=== PATIENT | female | born 1985 | race Caucasian/White ===

== ENCOUNTER 2016-12-04 05:03 | Emergency (ER) | payer SELFPAY ==
[~2016-12-04] VITALS: Ht 165.1 cm; Wt 90.7 kg
[2016-12-04 05:12] VITALS: BP 148/80
[2016-12-04 05:38] LABS: BILIRUBIN,URINE NEGATIVE (NEG); GLUCOSE,URINE NEGATIVE (NEG); NITRITE,URINE NEGATIVE (NEG); PH,URINE 5.5; PROTEIN,URINE NEGATIVE (NEG-TRACE); UROBILINOGEN,URINE 0.2 mg/dL (0.2 mg/dL)
[2016-12-04 05:46] LABS: BARBITURATES NEG (NEG); BENZODIAZEPINES NEG (NEG); CANNABINOIDS POS (NEG); COCAINE NEG (NEG); ETHANOL, URINE NEG (NEG); METHADONE NEG (NEG); OPIATES NEG (NEG); PHENCYCLIDINE POS (NEG)
--- NOTE | 2016-12-04 05:47 | PHYS DOC ---
Past Medical History Past Medical History: Asthma Past Surgical History: Alcohol Use: None Drug Use: Marijuana, Methamphetamine Adult General Chief Complaint Chief Complaint: HEADACHE HPI HPI This is a 31-year-old female who states she's had significant headache that is localized primarily to her frontal area for the last 5 days. She denies any nausea or vomiting. She denies any photophobia or phonophobia. She has tried taking Tylenol without relief. She states she usually does not have headaches. She does admit to being a previous IV methamphetamine user but states she has not used recently area she denies any fever or chills. She denies any neck pain or neck stiffness. Patient is fully alert and oriented and able to answer all my questions and in no acute distress. Review of Systems Review of Systems Constitutional: Denies fever or chills [] Eyes: Denies change in visual acuity, redness, or eye pain [] HENT: Denies nasal congestion or sore throat [] Respiratory: Denies cough or shortness of breath [] Cardiovascular: No additional information not addressed in HPI [] GI: Denies abdominal pain, nausea, vomiting, bloody stools or diarrhea [] : Denies dysuria or hematuria [] Musculoskeletal: Denies back pain or joint pain [] Integument: Denies rash or skin lesions [] Neurologic: Has headache, denies focal weakness or sensory changes [] Endocrine: Denies polyuria or polydipsia [] Current Medications Current Medications Current Medications Medications (Trade) Dose Ordered Sig/[facility] Start Time Stop Time Status Last Admin Dose Admin Ketorolac Tromethamine (Toradol Im) 60 mg 1X ONCE 12/04/16 06:00 12/04/16 06:01 DC 12/04/16 06:00 60 MG Allergies Allergies Allergies Coded Allergies Type Severity Reaction Last Updated Verified No Known Drug Allergies 01/13/14 No Physical Exam Physical Exam Constitutional: Well developed, well nourished, no acute distress, non-toxic appearance. [] HENT: Normocephalic, atraumatic, bilateral external ears normal, oropharynx moist, no oral exudates, nose normal. [] Eyes: PERRLA, EOMI, conjunctiva normal, no discharge. [] Neck: Normal range of motion, no tenderness, supple, no stridor. [] Cardiovascular:Heart rate regular rhythm, no murmur [] Lungs & Thorax: Bilateral breath sounds clear to auscultation [] Abdomen: Bowel sounds normal, soft, no tenderness, no masses, no pulsatile masses. [] Skin: Warm, dry, no erythema, no rash. [] Back: No tenderness, no CVA tenderness. [] Extremities: No tenderness, no cyanosis, no clubbing, ROM intact, no edema. [] Neurologic: Alert and oriented X 3, normal motor function, normal sensory function, no focal deficits noted. [] Psychologic: Affect normal, judgement normal, mood normal. [] Current Patient Data Vital Signs Vital Signs Date Time Temp Pulse Resp B/P Pulse Ox O2 Delivery O2 Flow Rate FiO2 12/04/16 05:12 97.7 103 20 148/80 100 Room Air 97.7 Lab Values Laboratory Tests Test 12/04/16 04:27 12/04/16 04:29 Urine Collection Type Unknown Urine Color Yellow Urine Clarity Clear Urine pH 5.5 Urine Specific [place] 1.015 Urine Protein Negativemg/dL (NEG-TRACE) Urine Glucose (UA) Negativemg/dL (NEG) Urine Ketones (Stick) Negativemg/dL (NEG) Urine Blood Trace (NEG) Urine Nitrite Negative (NEG) Urine Bilirubin Negative (NEG) Urine Urobilinogen Dipstick 0.2mg/dL (0.2 mg/dL) Urine Leukocyte Esterase Moderate (NEG) Urine RBC 0/HPF (0-2) Urine WBC 5-10/HPF (0-4) Urine Squamous Epithelial Cells Mod/LPF Urine Bacteria 0/HPF (0-FEW) Urine Opiates Screen Neg (NEG) Urine Methadone Screen Neg (NEG) Urine Barbiturates Neg (NEG) Urine Phencyclidine Screen Pos (NEG) Urine Amphetamine/Methamphetamine Pos (NEG) Urine Benzodiazepines Screen Neg (NEG) Urine Cocaine Screen Neg (NEG) Urine Cannabinoids Screen Pos (NEG) Urine Ethyl Alcohol Neg (NEG) POC Urine HCG, Qualitative Hcg negative (Negative) EKG EKG [] Radiology/Procedures Radiology/Procedures CT of the head without contrast demonstrates the following: CT head without contrast Indication: Headaches for 1 week. Axial imaging through the brain was performed without contrast. PQRS STATEMENT One or more of the following individualized dose reduction techniques were utilized for this study: 1.Automated exposure control. 2.Adjustment of the mA and/orkVaccording to patient size. 3.Use of iterative reconstruction technique. No prior studies are available for comparison. The ventricles and sulci are within normal limits. No sulcal effacement, midline shift or hemorrhage is detected. The cisterns are patent. There appears to be a small mucous retention cyst or polyp in the right maxillary sinus. Impression: No acute intracranial process is detected. Electronically signed by: Mark Wahl MD (Dec 04, 2016 06:02:43) Course & Med Decision Making Course & Med Decision Making Pertinent Labs and Imaging studies reviewed. (See chart for details) CT of her head without contrast did not demonstrate any acute intercranial abnormality. Her symptoms of an present for the last 5 days. Urine drug screen was positive for cannabis, phencyclidine, and methamphetamines. In light of this , I will not be providing any narcotics for this patient while in the department. I gave her an IM injection of Toradol. I will be discharging her home and telling her to continue taking Tylenol or Motrin for any of her symptoms and to avoid illicit drug use. There is no indication to perform any laboratory workup at this time. She has no fever and her exam is completely benign. Dragon Disclaimer Dragon Disclaimer This electronic medical record was generated, in whole or in part, using a voice recognition dictation system. Departure Departure Impression: Primary Impression: Headache Additional Impressions: Phencyclidine (PCP) use disorder, mild Methamphetamine use Disposition: 01 HOME, SELF-CARE Admitting Physician: Other Condition: STABLE Referrals: NO PCP (PCP) Patient Instructions: General Headache Without Cause, [id number] Additional Instructions: Please follow up with your primary doctor in the next 2-3 days for your headache. Return to the ER if you develop any worsening of your symptoms or develop any nausea, vomiting, or fever. Take tylenol or motrin for your symptoms. Avoid using any illicit drugs. Problem Qualifiers THEO HARRISON DO Dec 04, 2016 05:47
[2016-12-04 05:49] LABS: BACTERIA,URINE 0 /HPF (0-FEW); RBC,URINE 0 /HPF (0-2); SQUAMOUS EPITHELIAL CELL,UR MOD /LPF
[2016-12-04] MEDS ORDERED: KETOROLAC TROMETHAMINE 60 MG/2 ML SYRINGE. IM ONE (06:00)
--- NOTE | 2016-12-04 06:03 | RAD ---
CT head without contrast Indication: Headaches for 1 week. Axial imaging through the brain was performed without contrast. PQRS STATEMENT One or more of the following individualized dose reduction techniques were utilized for this study: 1.Automated exposure control. 2.Adjustment of the mA and/orkVaccording to patient size. 3.Use of iterative reconstruction technique. No prior studies are available for comparison. The ventricles and sulci are within normal limits. No sulcal effacement, midline shift or hemorrhage is detected. The cisterns are patent. There appears to be a small mucous retention cyst or polyp in the right maxillary sinus. Impression: No acute intracranial process is detected. Electronically signed by: Mark Wahl MD (Dec 04, 2016 06:02:43)
== END 2016-12-04 06:18 | disposition home or self-care (01) ==
LOC: ER 05:03
DX: R51 Headache (principal); F16.10 Hallucinogen abuse, uncomplicated; F15.10 Other stimulant abuse, uncomplicated; F12.10 Cannabis abuse, uncomplicated; J45.909 Unspecified asthma, uncomplicated
CPT/HCPCS: 70450; 81001; 81025; 87086; 96372; 99285; G0481; J1885

== ENCOUNTER 2017-09-03 00:22 | Emergency (ER) | payer SELFPAY ==
[~2017-09-03] VITALS: Ht 165.1 cm; Wt 90.7 kg
[2017-09-03 00:36] VITALS: BP 146/83
[2017-09-03 01:09] LABS: BILIRUBIN,URINE NEGATIVE (NEG); GLUCOSE,URINE NEGATIVE (NEG); NITRITE,URINE NEGATIVE (NEG); PROTEIN,URINE NEGATIVE (NEG-TRACE); UROBILINOGEN,URINE 0.2 mg/dL (0.2 mg/dL)
[2017-09-03 01:15] LABS: RBC,URINE OCC /HPF (0-2); WBC,URINE 20-40 /HPF (0-4)
[2017-09-03 01:16] LABS: BACTERIA,URINE FEW /HPF (0-FEW); SQUAMOUS EPITHELIAL CELL,UR FEW /LPF
[2017-09-03] MEDS ORDERED: LIDOCAINE 1% PF 2 ML VIAL. ONE (01:28)
[2017-09-03] MEDS ORDERED: METR500T PO (01:43)
--- NOTE | 2017-09-03 01:43 | PHYS DOC ---
Past Medical History Past Medical History: Anxiety, Asthma, Bipolar, Depression Past Surgical History: Additional Past Surgical Histo: 2008, 2010 Alcohol Use: None Drug Use: Marijuana, Methamphetamine Social History Narrative: clean for past 5 months Adult General Chief Complaint Chief Complaint: ABDOMINAL PAIN HPI HPI Patient is a 32 year old female presenting to the emergency department for evaluation of abdominal pain and vaginal discharge has been going on for approximately one week. She has resumed sexual activity with the person that gave her STDs in the past and she is concerned that she has gonorrhea chlamydia and syphilis. She says the abdominal pain is midline crampy and comes and goes and she has pain with intercourse. She says that she is not and denies any vaginal bleeding fevers chills nausea vomiting dysuria hematuria diarrhea or constipation. Review of Systems Review of Systems Constitutional: Denies fever or chills [] GI: + abdominal pain. No nausea, vomiting, bloody stools or diarrhea [] : Denies dysuria or hematuria [] Musculoskeletal: Denies back pain or joint pain [] Current Medications Current Medications Current Medications Medications (Trade) Dose Ordered Sig/Tia Start Time Stop Time Status Last Admin Dose Admin Azithromycin (Zithromax) 1,000 mg 1X ONCE 09/03/17 02:00 09/03/17 02:01 DC 09/03/17 01:33 1,000 MG Ceftriaxone Sodium (Rocephin Im) 250 mg 1X ONCE 09/03/17 02:00 09/03/17 02:01 DC 09/03/17 01:32 250 MG Lidocaine HCl (Xylocaine-Mpf 1% Vial) 2 ml STK-MED ONCE 09/03/17 01:28 09/03/17 01:29 DC Allergies Allergies Allergies Coded Allergies Type Severity Reaction Last Updated Verified No Known Drug Allergies 01/13/14 No Physical Exam Physical Exam Constitutional: Well developed, well nourished, no acute distress, non-toxic appearance. [] Cardiovascular:Heart rate regular rhythm, no murmur [] Lungs & Thorax: Bilateral breath sounds clear to auscultation [] Abdomen: Bowel sounds normal, soft, no tenderness, no masses, no pulsatile masses. [] [facility] exam reveals large amount of white vaginal discharge with red cervix but no purulence noted. Positive cervical motion tenderness but no adnexal tenderness noted. Current Patient Data Vital Signs Vital Signs Date Time Temp Pulse Resp B/P (MAP) Pulse Ox O2 Delivery O2 Flow Rate FiO2 09/03/17 00:36 98.4 91 20 146/83 (104) 100 Room Air 98.4 Lab Values Laboratory Tests Test 09/03/17 00:34 09/03/17 00:52 Urine Collection Type Unknown Urine Color Yellow Urine Clarity Clear Urine pH 6.0 Urine Specific [place] 1.020 Urine Protein Negative mg/dL (NEG-TRACE) Urine Glucose (UA) Negative mg/dL (NEG) Urine Ketones (Stick) Negative mg/dL (NEG) Urine Blood Negative (NEG) Urine Nitrite Negative (NEG) Urine Bilirubin Negative (NEG) Urine Urobilinogen Dipstick 0.2 mg/dL (0.2 mg/dL) Urine Leukocyte Esterase Moderate (NEG) Urine RBC Occ /HPF (0-2) Urine WBC 20-40 /HPF (0-4) Urine Squamous Epithelial Cells Few /LPF Urine Bacteria Few /HPF (0-FEW) Urine Mucus Mod /LPF POC Urine HCG, Qualitative Hcg negative (Negative) Microbiology 09/03/17 Wet Prep - Final, Complete EKG EKG [] Radiology/Procedures Radiology/Procedures [] Course & Med Decision Making Course & Med Decision Making I told patient that we would go ahead and treat her for gonorrhea and chlamydia but she would need to follow the health department for further STD testing such as syphilis. Patient was told I could treat her for syphilis here but as far as testing she would need to do that at the health department. She refused treatment for syphilis but said that she would follow up with the health department. Patient given Rocephin Zithromax and Flagyl and told to follow with [facility] within 2-3 days and come back to the ED sooner with worsening pain fevers vomiting or other general concerns. Patient aware and agreeable with plan for discharge and verbalized understanding of the need for short-term follow-up and strict ED return precautions discussed as above. Dragon Disclaimer Dragon Disclaimer This electronic medical record was generated, in whole or in part, using a voice recognition dictation system. Departure Departure Impression: Primary Impression: Bacterial vaginosis Disposition: HOME, SELF-CARE Condition: STABLE Referrals: NO PCP (PCP) Patient Instructions: Bacterial Vaginosis Scripts Metronidazole (FLAGYL) 500 Mg Tablet 1 TAB PO BID, #14 TAB Prov: REBECCA MURO DO 09/03/17 REBECCA MURO DO Sep 03, 2017 01:43
[2017-09-03] MEDS ORDERED: cefTRIAXone IM 250 MG VIAL IM ONE (02:00)
[2017-09-03] MEDS ORDERED: AZITHROMYCIN 250 MG TABLET. PO ONE (02:00)
== END 2017-09-03 01:57 | disposition home or self-care (01) ==
LOC: ER 00:22
DX: N76.0 Acute vaginitis (principal); B96.89 Other specified bacterial agents as the cause of diseases classified elsewhere; J45.909 Unspecified asthma, uncomplicated; F31.9 Bipolar disorder, unspecified; F12.10 Cannabis abuse, uncomplicated; F15.10 Other stimulant abuse, uncomplicated
CPT/HCPCS: 81001; 81025; 87086; 87186; 87491; 87591; 96372; 99284; J0696; Q0111; Q0144